=== PATIENT | female | born 1975 | race African-American/Black ===

== ENCOUNTER 2018-02-26 11:34 | Inpatient (IN) | payer MEDICAID, OTHER ==
[~2018-02-26] VITALS: Ht 167.6 cm; Wt 114.6 kg
[2018-02-26 13:05] LABS: Urine Bacteria NONE SEEN /hpf (None Seen); Urine Blood TRACE /uL (Negative); Urine Specific Gravity 1.034 (1.001-1.035); Urine WBC 5 /hpf (0 - 5)
[2018-02-26 13:05] LABS: Basophils # (auto) 0.1 uL; Basophils % (auto) 0.8 % (0.0-2.0); Eosinophils # (auto) 0.1 uL; Eosinophils % (auto) 0.7 % (0.0-7.0); Hematocrit 48.7 % (36.0-46.0); Hemoglobin 16.1 g/dL (12.2-16.2); Lymphocytes # (auto) 2.2 uL; Lymphocytes % (auto) 27.3 % (10.0-50.0); Mean Corpuscular Hemoglobin 30.8 pg (28.0-32.0); Mean Corpuscular Volume 93.5 fL (80.0-100.0); Monocytes % (auto) 12.1 % (0.0-12.0); Neutrophils # (auto) 4.8 uL; Neutrophils % (auto) 59.1 % (37.0-80.0); Nucleated Red Blood Cells % 0.1 %; Platelet Count (auto) 293 10^3/uL (140-450); Red Blood Cells 5.21 10^6/uL (4.0-5.20); Red Cell Distribution Width 14.4 % (11.8-14.3); White Blood Cell 8.1 10^3/uL (4.4-10.8)
[2018-02-26 13:20] LABS: Alanine Aminotransferase 43 U/L (13-56); Albumin 4.1 g/dL (3.4-5.0); Alkaline Phosphatase 149 U/L (45-117); Anion Gap 25 (5-15); Aspartate Aminotransferase 36 U/L (15-37); BUN/Creatinine Ratio 9.2; Bilirubin, Total 0.8 mg/dL (0.2-1.0); Blood Urea Nitrogen 14 mg/dL (7-18); Calcium 9.9 mg/dL (8.5-10.1); Carbon Dioxide 12 mmol/L (21-32); Chloride 90 mmol/L (98-107); GFR African American 48 mL/min; GFR Non-African American 40 mL/min; Potassium 5.1 mmol/L (3.5-5.1); Sodium 127 mmol/L (136-145); Total Protein 9.2 g/dL (6.4-8.2)
[2018-02-26 13:39] LABS: Glucose 649 mg/dL (74-106)
[2018-02-26] MEDS ORDERED: InsuLIN R (HUMAN) 100 UNITS in SODIUM CHL 0.9% 99 ML IV SCH ×4 (16:57)
[2018-02-26] MEDS ORDERED: SODIUM CHLORIDE 0.9% 1,000 ML IV SCH ×2 (16:57→23:15)
[2018-02-26] MEDS ORDERED: SODIUM CHLORIDE 0.9% 1,000 ML IVB ONE (16:57)
[2018-02-26] MEDS ORDERED: ONDANSETRON HCL 4 MG/2 ML VIAL IV ONE (17:00)
[2018-02-26] MEDS ORDERED: DEXTROSE (50%) 50ML SYRG IV PRN ×2 (17:00→19:15)
[2018-02-26] MEDS ORDERED: SODIUM CHLORIDE 0.9% 1,000 ML IV ONE (17:00)
[2018-02-26] MEDS ORDERED: ACCU-CHEK COMFORT CURVE STRIP VI SCH (18:00)
[2018-02-26 19:06] LABS: Magnesium 2.5 mg/dL (1.6-2.6)
[2018-02-26] MEDS ORDERED: PROMETHAZINE HCL 25 MG/ML 1ML IV PRN (19:15)
[2018-02-26] MEDS ORDERED: HYDROcodone-ACET 5/325MG TAB PO PRN (19:15)
[2018-02-26] MEDS ORDERED: MORPHINE SULFATE 8mg/ml INJ SDV IV PRN ×2 (19:15)
[2018-02-26] MEDS ORDERED: ACETAMINOPHEN 500 MG TAB PO PRN (19:15)
[2018-02-26] MEDS ORDERED: NITROGLYCERIN 0.4 MG SL TAB SL PRN (19:15)
[2018-02-26] MEDS ORDERED: LORazepam 0.5 MG TAB PO PRN (19:15)
[2018-02-26] MEDS ORDERED: cefTRIAXone 1GM/10ml IVPUSH 10 ML IV ONE (19:15)
[2018-02-26] MEDS ORDERED: TEMAZEPAM 15 MG CAP PO PRN (19:15)
[2018-02-26] MEDS: SODIUM CHLORIDE 0.9% 1,000 ML IV SCH ×2 (19:34→21:27)
[2018-02-26] MEDS: InsuLIN R (HUMAN) 100 UNITS in SODIUM CHL 0.9% 99 ML IV SCH (19:34)
[2018-02-26] MEDS: ACCU-CHEK COMFORT CURVE STRIP VI SCH ×3 (19:35→22:46)
[2018-02-26] MEDS: PANTOPRAZOLE 40 MG TAB PO SCH (19:38)
[2018-02-26 19:46] LABS: INR 0.95 (0.9-1.15); Partial Thromboplastin Time 25.1 sec (23.78-33.04); Prothrombin Time 10.2 sec (9.27-12.13)
[2018-02-26 19:50] LABS: BUN/Creatinine Ratio 9.8; Calcium 9.4 mg/dL (8.5-10.1)
[2018-02-26 23:42] LABS: BUN/Creatinine Ratio 9.8; Calcium 8.8 mg/dL (8.5-10.1); Potassium 4.4 mmol/L (3.5-5.1)
[2018-02-27] MEDS: ACCU-CHEK COMFORT CURVE STRIP VI SCH ×16 (00:11→22:30)
[2018-02-27] MEDS: SODIUM CHLORIDE 0.9% 1,000 ML IV SCH ×4 (01:19→22:07)
[2018-02-27 03:58] LABS: BUN/Creatinine Ratio 8.4; Calcium 8.6 mg/dL (8.5-10.1); Potassium 3.9 mmol/L (3.5-5.1)
[2018-02-27] MEDS: InsuLIN R (HUMAN) 100 UNITS in SODIUM CHL 0.9% 99 ML IV SCH (07:45)
[2018-02-27] MEDS: cefTRIAXone 1GM/10ml IVPUSH 10 ML IV SCH (09:22)
[2018-02-27] MEDS: PANTOPRAZOLE 40 MG TAB PO SCH (10:36)
[2018-02-27 10:46] LABS: BUN/Creatinine Ratio 8.9; Calcium 8.7 mg/dL (8.5-10.1); Potassium 3.9 mmol/L (3.5-5.1)
[2018-02-27] MEDS ORDERED: PNEUMOCOCCAL VACC POLYS 25 MCG/0.5 ML VIAL IM ONE (14:00)
[2018-02-27] MEDS ORDERED: LACTULOSE 20Gm/30ML SOLN PO ONE (14:00)
[2018-02-27 14:09] LABS: BUN/Creatinine Ratio 9.5; Calcium 8.4 mg/dL (8.5-10.1)
[2018-02-27] MEDS: LACTULOSE 20Gm/30ML SOLN PO SCH (17:54)
[2018-02-27 20:11] LABS: BUN/Creatinine Ratio 8.3; Calcium 7.9 mg/dL (8.5-10.1); Potassium 3.4 mmol/L (3.5-5.1)
[2018-02-27] MEDS ORDERED: POTASSIUM PHOSPHATE 26.4 MEQ in SODIUM CHL 0.9% 100 ML IV ONE (20:45)
[2018-02-28] MEDS: ACCU-CHEK COMFORT CURVE STRIP VI SCH ×16 (00:19→22:30)
[2018-02-28 03:34] LABS: Basophils # (auto) 0.1 uL; Basophils % (auto) 1.1 % (0.0-2.0); Eosinophils # (auto) 0.2 uL; Hematocrit 36.7 % (36.0-46.0); Hemoglobin 12.7 g/dL (12.2-16.2); Lymphocytes # (auto) 3.2 uL; Lymphocytes % (auto) 39.1 % (10.0-50.0); Mean Corpuscular Hemoglobin 30.9 pg (28.0-32.0); Mean Corpuscular Hgb Conc. 34.5 g/dL (32.0-36.0); Mean Corpuscular Volume 89.7 fL (80.0-100.0); Monocytes # (auto) 1.1 uL; Monocytes % (auto) 13.1 % (0.0-12.0); Neutrophils # (auto) 3.7 uL; Neutrophils % (auto) 44.7 % (37.0-80.0); Nucleated Red Blood Cells % 0.1 %; Platelet Count (auto) 257 10^3/uL (140-450); Red Cell Distribution Width 14.1 % (11.8-14.3); White Blood Cell 8.2 10^3/uL (4.4-10.8)
[2018-02-28 03:50] LABS: Albumin 2.8 g/dL (3.4-5.0); BUN/Creatinine Ratio 8.6; Calcium 7.8 mg/dL (8.5-10.1); Potassium 4.5 mmol/L (3.5-5.1)
[2018-02-28 03:53] LABS: Bilirubin, Total 0.3 mg/dL (0.2-1.0); Total Protein 6.6 g/dL (6.4-8.2)
[2018-02-28] MEDS: SODIUM CHLORIDE 0.9% 1,000 ML IV SCH ×4 (04:09→23:01)
[2018-02-28] MEDS: LACTULOSE 20Gm/30ML SOLN PO SCH ×4 (06:49→18:00)
[2018-02-28] MEDS ORDERED: ENOXAPARIN SOD 40 MG/0.4 ML SYRINGE SC ONE (09:00)
[2018-02-28] MEDS: cefTRIAXone 1GM/10ml IVPUSH 10 ML IV SCH (09:30)
[2018-02-28] MEDS: PANTOPRAZOLE 40 MG TAB PO SCH (10:52)
[2018-02-28] MEDS: ENOXAPARIN SOD 40 MG/0.4 ML SYRINGE SC SCH (10:57)
[2018-02-28 11:35] LABS: Albumin 2.7 g/dL (3.4-5.0); BUN/Creatinine Ratio 8.3; Bilirubin, Total 0.4 mg/dL (0.2-1.0); Calcium 7.6 mg/dL (8.5-10.1); Total Protein 6.3 g/dL (6.4-8.2)
[2018-02-28 12:24] LABS: Potassium 3.5 mmol/L (3.5-5.1)
[2018-02-28] MEDS: Boost Glucose Control 8 Ounces PO SCH (18:00)
[2018-02-28] MEDS: InsuLIN R (HUMAN) 100 UNITS in SODIUM CHL 0.9% 99 ML IV SCH (19:42)
[2018-03-01] LABS: BUN/Creatinine Ratio 4.5; Calcium 8.1 mg/dL (8.5-10.1); Potassium 3.7 mmol/L (3.5-5.1)
[2018-03-01] MEDS: ACCU-CHEK COMFORT CURVE STRIP VI SCH ×9 (00:26→23:45)
[2018-03-01] MEDS: LACTULOSE 20Gm/30ML SOLN PO SCH ×5 (04:59→23:45)
[2018-03-01] MEDS: SODIUM CHLORIDE 0.9% 1,000 ML IV SCH ×3 (05:00→23:45)
[2018-03-01 05:02] LABS: Basophils # (auto) 0.1 uL; Basophils % (auto) 0.9 % (0.0-2.0); Eosinophils # (auto) 0.2 uL; Eosinophils % (auto) 2.2 % (0.0-7.0); Hematocrit 36.1 % (36.0-46.0); Hemoglobin 12.5 g/dL (12.2-16.2); Lymphocytes # (auto) 2.4 uL; Lymphocytes % (auto) 33.1 % (10.0-50.0); Mean Corpuscular Hemoglobin 30.9 pg (28.0-32.0); Mean Corpuscular Hgb Conc. 34.5 g/dL (32.0-36.0); Mean Corpuscular Volume 89.8 fL (80.0-100.0); Monocytes % (auto) 13.8 % (0.0-12.0); Neutrophils # (auto) 3.6 uL; Nucleated Red Blood Cells % 0.2 %; Platelet Count (auto) 218 10^3/uL (140-450); Red Blood Cells 4.03 10^6/uL (4.0-5.20); Red Cell Distribution Width 13.9 % (11.8-14.3); White Blood Cell 7.2 10^3/uL (4.4-10.8)
[2018-03-01 05:26] LABS: Albumin 2.7 g/dL (3.4-5.0); BUN/Creatinine Ratio 7.8; Bilirubin, Total 0.2 mg/dL (0.2-1.0); Calcium 7.8 mg/dL (8.5-10.1); Potassium 3.3 mmol/L (3.5-5.1)
[2018-03-01] MEDS ORDERED: DEXTROSE (50%) 50ML SYRG IV PRN (05:45)
[2018-03-01] MEDS: InsuLIN REG 1unit/0.01ml Soln (100units/ml) SC SCH ×5 (08:09→23:45)
[2018-03-01] MEDS: Boost Glucose Control 8 Ounces PO SCH ×3 (08:09→17:55)
[2018-03-01 09:30] VITALS: BP 125/70
[2018-03-01 10:00] VITALS: BP 125/70
[2018-03-01] MEDS ORDERED: POTASSIUM CHLORIDE 8 MEQ TAB PO ONE (10:30)
[2018-03-01] MEDS: cefTRIAXone 1GM/10ml IVPUSH 10 ML IV SCH (13:18)
[2018-03-01] MEDS: ENOXAPARIN SOD 40 MG/0.4 ML SYRINGE SC SCH (13:19)
[2018-03-01] MEDS: PANTOPRAZOLE 40 MG TAB PO SCH (13:19)
[2018-03-01 17:00] VITALS: BP 113/53
[2018-03-01 21:29] VITALS: BP 135/82
[2018-03-02] MEDS: ACCU-CHEK COMFORT CURVE STRIP VI SCH ×3 (04:13→11:41)
[2018-03-02] MEDS: InsuLIN REG 1unit/0.01ml Soln (100units/ml) SC SCH ×3 (04:13→12:00)
[2018-03-02] MEDS: SODIUM CHLORIDE 0.9% 1,000 ML IV SCH ×2 (04:20→11:14)
[2018-03-02 04:43] VITALS: BP 134/80
[2018-03-02] MEDS: LACTULOSE 20Gm/30ML SOLN PO SCH ×2 (06:00→12:00)
[2018-03-02 07:36] LABS: Basophils # (auto) 0 uL; Basophils % (auto) 0.5 % (0.0-2.0); Eosinophils # (auto) 0.2 uL; Eosinophils % (auto) 2.5 % (0.0-7.0); Hematocrit 36.2 % (36.0-46.0); Hemoglobin 12.5 g/dL (12.2-16.2); Lymphocytes # (auto) 2.6 uL; Lymphocytes % (auto) 40.1 % (10.0-50.0); Mean Corpuscular Hemoglobin 30.8 pg (28.0-32.0); Mean Corpuscular Hgb Conc. 34.6 g/dL (32.0-36.0); Mean Corpuscular Volume 88.9 fL (80.0-100.0); Monocytes % (auto) 15.5 % (0.0-12.0); Neutrophils # (auto) 2.7 uL; Neutrophils % (auto) 41.4 % (37.0-80.0); Nucleated Red Blood Cells % 0.1 %; Platelet Count (auto) 227 10^3/uL (140-450); Red Blood Cells 4.07 10^6/uL (4.0-5.20); Red Cell Distribution Width 14.2 % (11.8-14.3); White Blood Cell 6.5 10^3/uL (4.4-10.8)
[2018-03-02 07:41] LABS: Albumin 2.6 g/dL (3.4-5.0); Calcium 7.7 mg/dL (8.5-10.1); Potassium 3.2 mmol/L (3.5-5.1)
[2018-03-02 07:44] LABS: BUN/Creatinine Ratio 9.5
[2018-03-02 07:47] LABS: Bilirubin, Total 0.4 mg/dL (0.2-1.0); Total Protein 5.7 g/dL (6.4-8.2)
[2018-03-02] MEDS: Boost Glucose Control 8 Ounces PO SCH ×2 (07:51→11:21)
[2018-03-02 09:00] VITALS: BP 131/73
[2018-03-02] MEDS: cefTRIAXone 1GM/10ml IVPUSH 10 ML IV SCH (11:14)
[2018-03-02] MEDS: PANTOPRAZOLE 40 MG TAB PO SCH (11:14)
[2018-03-02] MEDS: ENOXAPARIN SOD 40 MG/0.4 ML SYRINGE SC SCH (11:14)
[2018-03-02 13:00] VITALS: BP 120/73
[2018-03-02] MEDS ORDERED: POTASSIUM CHLORIDE 8 MEQ TAB PO ONE (14:15)
[2018-03-02 15:31] VITALS: BP 120/73
== END 2018-03-02 16:30 | disposition home or self-care (01) | DRG 469 ==
LOC: ER 11:34 → TELE 11:35 → TELE-EAST 03-01 09:51
PROVIDERS: ADMIT Internal Medicine; ATTEND Internal Medicine
DX: N17.0 Acute kidney failure with tubular necrosis (principal); E10.10 Type 1 diabetes mellitus with ketoacidosis without coma; E44.0 Moderate protein-calorie malnutrition; E10.21 Type 1 diabetes mellitus with diabetic nephropathy; E10.40 Type 1 diabetes mellitus with diabetic neuropathy, unspecified; Z68.41 Body mass index [BMI] 40.0-44.9, adult; E83.51 Hypocalcemia; N39.0 Urinary tract infection, site not specified; N18.3 Chronic kidney disease, stage 3 (moderate); K80.20 Calculus of gallbladder without cholecystitis without obstruction; E10.22 Type 1 diabetes mellitus with diabetic chronic kidney disease; K76.0 Fatty (change of) liver, not elsewhere classified; E87.1 Hypo-osmolality and hyponatremia; E87.6 Hypokalemia; Z90.81 Acquired absence of spleen; Z90.3 Acquired absence of stomach [part of]; Z85.028 Personal history of other malignant neoplasm of stomach; E86.0 Dehydration; Z82.49 Family history of ischemic heart disease and other diseases of the circulatory system; Z83.3 Family history of diabetes mellitus
CPT/HCPCS: 36415; 36600; 71045; 74176; 76705; 78226; 80048; 80053; 81001; 82150; 82805; 82962; 83036; 83690; 83735; 84100; 84484; 85025; 85610; 85730; 87086; 93005; 94761; 96361; 96365; 96375; 99291; J1815